=== PATIENT | female | born 1990 | race Asian ===

== ENCOUNTER 2016-06-28 04:41 | Emergency (ER) | payer SELFPAY ==
[~2016-06-28] VITALS: Ht 162.6 cm; Wt 52.2 kg
[2016-06-28 04:41] VITALS: BP 142/98
== END 2016-06-28 05:45 | disposition home or self-care (01) ==
LOC: ER 04:45
DX: F10.129 Alcohol abuse with intoxication, unspecified (principal); F15.90 Other stimulant use, unspecified, uncomplicated
CPT/HCPCS: 99283; A4606; Z7610